=== PATIENT | female | born 1960 | race Caucasian/White ===

== ENCOUNTER 2022-12-13 10:21 | Emergency (ER) | payer BC ==
[2022-12-13 10:28] VITALS: RESP 18
--- NOTE | 2022-12-13 10:57 | ED ---
Extremity Problem HPI - General Chief complaint: Extremity Problem,Nontraumatic Stated complaint: post op knee pain Time Seen by Provider: 12/13/22 10:42 Source: patient, RN notes reviewed, old records reviewed Mode of arrival: ambulatory Limitations: no limitations - History of Present Illness Initial comments: This is a nontoxic-appearing 62-year-old female that presents to the emergency room with complaints of left knee pain that started yesterday after physical therapy. Patient states that she did have a surgery after a slip and fall on November 26 landing on her left hip and suffered a hip fracture. Surgery was performed at [facility] with Dr Mendieta. She did have anemia after surgery and was kept in the hospital. States her last hemoglobin was 10. States she did start physical therapy on with increased pain today. No swelling. No fevers. Patient states that she is taking [place] and eliquis however is concerned for a blood clot. States feels pulling in the back of her calf MD Complaint: extremity pain -: days(s) (3) Location: left, lower extremity, knee Severity scale (1-10): 10 Consistency: constant Improves with: immobilization, elevation Worsens with: palpation Associated Symptoms: denies other symptoms - Related Data Allergies Allergy/AdvReac Type Severity Reaction Status Date / Time No Known Allergies Allergy Verified 12/13/22 10:24 Review of Systems ROS Statement: Those systems with pertinent positive or pertinent negative responses have been documented in the HPI. ROS Other: All systems not noted in ROS Statement are negative. Past Medical History Past Medical History: No Reported History History of Any Multi-Drug Resistant Organisms: None Reported Past Surgical History: Orthopedic Surgery Past Psychological History: No Psychological Hx Reported Smoking Status: Never smoker Past Alcohol Use History: None Reported Past Drug Use History: None Reported General Exam Limitations: no limitations General appearance: alert, in no apparent distress Head exam: Present: atraumatic Eye exam: Present: normal appearance. Absent: scleral icterus, conjunctival injection, periorbital swelling Respiratory exam: Absent: respiratory distress, accessory muscle use Cardiovascular Exam: Present: regular rate GI/Abdominal exam: Present: soft Extremities exam: Present: normal capillary refill. Absent: pedal edema, joint swelling, calf tenderness Left Hip exam: Present: ecchymosis Upper Leg exam: Present: ecchymosis Knee exam: Present: tenderness, ecchymosis, full knee extension. Absent: swelling Lower Leg exam: Present: tenderness, ecchymosis. Absent: deformity, crepitus, dislocation, erythema, palpable cord, Homans' sign Ankle exam: Present: normal inspection. Absent: tenderness Neurovascular tendon exam: Present: no vascular compromise. Absent: abnormal cap refill, foot drop Neurological exam: Present: alert, oriented X3 Psychiatric exam: Present: normal affect, normal mood Skin exam: Present: warm, dry, normal color. Absent: cyanosis, diaphoretic, petechiae, pallor Course Vital Signs 12/13/22 12/13/22 10:24 12:31 Temperature 98.3 F 98.2 F Pulse Rate 90 64 Respiratory 18 Rate Blood Pressure 119/56 115/61 O2 Sat by Pulse 100 100 Oximetry Medical Decision Making - Medical Decision Making Pedal pulses are present. Foot is warm and dry. No evidence of foot drop. Sensation intact. Due to the patient's concern for complications post femur fracture or blood clot, a repeat x-ray and ultrasound to rule out DVT were performed. Patient is taking eliquis X-ray of the left knee shows no acute osseous abnormality X-ray of left hip shows status post medullary arthur in the left hip pinning. A left hip fracture evident on crosstable lateral view. Ultrasound left leg shows no evidence of DVT. Pain may be related to recent start of physical therapy post op. She was instructed to continue taking her Eliquis and follow-up with her orthopedic doctor next week. She is able to this plan of care. Case was discussed with Dr. Paul Was pt. sent in by a medical professional or institution (, PA, EMBROIDERER HAND, urgent care, hospital, or penitentiary...) When possible be specific @ -No Did you speak to anyone other than the patient for history (EMS, parent, family, police, friend...)? What history was obtained from this source @ -No Did you review nursing and triage notes (agree or disagree)? Why? @ -I reviewed and agree with nursing and triage notes Were old charts reviewed (outside hosp., previous admission, EMS record, old EKG, old radiological studies, urgent care reports/EKG's, penitentiary records)? Report findings @ -No old charts were reviewed Differential Diagnosis (chest pain, altered mental status, abdominal pain women, abdominal pain men, vaginal bleeding, weakness, fever, dyspnea, syncope, headache, dizziness, GI bleed, back pain, seizure, CVA, palpatations, mental health, musculoskeletal)? @ -DVT, cellulitis, abscess, internal derangement knee, fracture or malalignment of hardware, this is not an all inclusive list EKG interpreted by me (3pts min.). @ -n/a X-rays interpreted by me (1pt min.). @ -Yes as above CT interpreted by me (1pt min.). @ -None done U/S interpreted by me (1pt. min.). @ -no What testing was considered but not performed or refused? (CT, X-rays, U/S, labs)? Why? @ -None What meds were considered but not given or refused? Why? @ -Patient currently on eliquis Did you discuss the management of the patient with other professionals (professionals i.e. , PA, EMBROIDERER HAND, lab, RT, psych nurse, professor of social work, stone carriage operator, teacher, donor relations officer, employment case manager)? Give summary @ -No Was smoking cessation discussed for >3mins.? @ -No Was critical care preformed (if so, how long)? @ -No Were there social determinants of health that impacted care today? How? (Homelessness, low income, unemployed, alcoholism, drug addiction, transportation, low edu. Level, literacy, decrease access to med. care, nursing home, rehab)? @ -No Was there de-escalation of care discussed even if they declined (Discuss DNR or withdrawal of care, Hospice)? DNR status @ -No What co-morbidities impacted this encounter? (DM, HTN, Smoking, COPD, CAD, Cancer, CVA, ARF, Chemo, Hep., AIDS, mental health diagnosis, sleep apnea, morbid obesity)? @ -None Was patient admitted / discharged? Hospital course, mention meds given and route, prescriptions, significant lab abnormalities, going to OR and other pertinent info. @ -Discharged Undiagnosed new problem with uncertain prognosis? @ -No Drug Therapy requiring intensive monitoring for toxicity (Heparin, Nitro, Insu toñito, Cardizem)? @ -No Were any procedures done? @ -No Diagnosis/symptom? @ -Internal derangement left knee, left leg pain status post left femur fracture repair Acute, or Chronic, or Acute on Chronic? @ -Acute Uncomplicated (without systemic symptoms) or Complicated (systemic symptoms)? @ -Uncomplicated Side effects of treatment? @ -No Exacerbation, Progression, or Severe Exacerbation? @ -No Poses a threat to life or bodily function? How? (Chest pain, [place], OR, pneumonia, PE, COPD, DKA, ARF, appy, cholecystitis, CVA, Diverticulitis, Homicidal, Suicidal, threat to staff... and all critical care pts) @ -No Disposition Clinical Impression: Pain in left leg, Internal derangement of left knee Disposition: HOME SELF-CARE Condition: Good Instructions (If sedation given, give patient instructions): Leg Pain (ED) Additional Instructions: Continue taking your previously prescribed medications. Follow up with the orthopedic doctor on Thursday. Return to the emergency room with any new or concerning symptoms. Is patient prescribed a controlled substance at d/c from ED?: No Referrals: Nonstaff,Physician [Primary Care Provider] - 1-2 days Time of Disposition: 12:29
[2022-12-13] MEDS: MORPHINE SULFATE 4 MG/ML SYRINGE IM STA ×2 (11:02→11:37)
[2022-12-13] MEDS ORDERED: MORPHINE SULFATE 4 MG/ML SYRINGE IM STA (11:12)
--- NOTE | 2022-12-13 12:07 | XR ---
EXAMINATION TYPE: XR femur LT DATE OF EXAM: 12/13/2022 COMPARISON: None HISTORY: Pain post surgery TECHNIQUE: 2 view left femur FINDINGS: There is a left hip pinning with medullary arthur present. Cerclage wire is present. Postsurgi eric skin dayna are evident. Left hip fracture is evident on the crosstable lateral view. IMPRESSION: 1. Status post medullary arthur and left hip pain. Left hip fracture is evident on the crosstable later al view.
--- NOTE | 2022-12-13 12:08 | US ---
EXAMINATION TYPE: US venous doppler duplex LE LT DATE OF EXAM: 12/13/2022 10:56 AM COMPARISON: NONE CLINICAL HISTORY: s/p sx pain. No hx of DVT. Patient is on Xarelto. S/P SX pain. SIDE PERFORMED: Left TECHNIQUE: The lower extremity deep venous system is examined utilizing real time linear array sonog dahlia with graded compression, doppler sonography and color-flow sonography. VESSELS IMAGED: Common Femoral Vein Deep Femoral Vein Greater Saphenous Vein * Femoral Vein Popliteal Vein Small Saphenous Vein * Proximal Calf Veins (* superficial vessels) Left Leg: No evidence of DVT. IMPRESSION: 1. No ultrasound evidence of deep venous thrombosis left lower extremity.
--- NOTE | 2022-12-13 12:09 | XR ---
EXAMINATION TYPE: XR knee complete LT DATE OF EXAM: 12/13/2022 COMPARISON: Left femur HISTORY: Status post surgery, pain TECHNIQUE: Three-view left knee FINDINGS: Distal femoral medullary arthur is evident. Fixation screws are present. Surgical skin dayna are lateral There is mild narrowing of the knee joint space. No acute fractures are within the field of view. No significant joint effusion is evident. IMPRESSION: 1. No acute osseous abnormality left knee
[2022-12-13 12:46] VITALS: BP 115/61; PULSE 64; TEMP 98.2
== END 2022-12-13 12:46 | disposition home or self-care (01) ==
LOC: EC 10:21
DX: M23.92 Unspecified internal derangement of left knee (principal)
CPT/HCPCS: 99284

== ENCOUNTER → 2023-08-10 | Outpatient (CLI) | payer BC ==
--- NOTE | 2023-08-10 09:40 | MM ---
Reason for Exam: Screening (asymptomatic). Patient History: Menarche at age 12. Postmenopausal. Hormonal Contraceptives, from age 19 until age 39. Risk Values: Shannon 5 year model risk: 1.1%. NCI Lifetime model risk: 4.9%. Prior Study Comparison: No prior studies available for comparison. Tissue Density: The breast tissue is extremely dense which could obscure a lesion on mammography. Findings: Analyzed By CAD. There is no suspicious group of microcalcifications or new suspicious mass. Overall Assessment: Negative, BI-RAD 1 Management: Screening Mammogram of both breasts in [address] [facility] will attempt to contact patient to return for supplemental views and ultrasound if indicated. Patient should continue monthly self-breast exams. A clinical breast exam by your physician is recommended on an annual basis. This exam should not preclude additional follow-up of suspicious palpable abnormalities. Note on Shannon scores and lifetime risk: 1. A Shannon score greater than 3% is considered moderate risk. If this is the case, consider specialist referral to assess eligibility for a risk reducing agent. 2. If overall lifetime risk for the development of breast cancer is 20% or higher, the patient may qualify for future screening with alternating mammogram and breast MRI. Electronically signed and approved by: Levon Prather DO
--- NOTE | 2023-08-10 12:13 | BD ---
EXAMINATION TYPE: Axial Bone Density DATE OF EXAM: 08/10/2023 CLINICAL HISTORY: 62 years old Female. ICD-10 CODE: Z78.0 ASYMPTOMATIC MENOPAUSAL STA Height: 64 Weight: 120 FRAX RISK QUESTIONS: Family History (Parent hip fracture): yes History of Fracture in Adulthood: yes Secondary Osteoporosis: yes 3. Menopause before 45: yes 5. Chronic liver disease: acupuncture for slow liver RISK FACTORS HISTORY OF: Hip Fracture lt femoral/hip fx with surgical repair...12.13.2022 Surgery to lt hip/femur; 12.13.2022 Family History of Osteoporosis: yes, mother Postmenopausal woman: yes, at 40 yrs old Take estrogen and/or progesterone medications: in the past but nothing now Hyperparathyroidism: no Adrenal Insufficiency: no MEDICATIONS: Additional Medications: pain meds, iodine for her thyroid, xanax prn, statin for cholesterol, vit d a nd calcium, reflux otc meds, and acupuncture Additional History: hx of lt hip fx and repair, 2022, participates in acupuncture, and [place] herbal remedies, cholesterol meds, EXAM MEASUREMENTS: Bone mineral densitometry was performed using the [employer]. Bone mineral density as measured about the Lumbar spine is: ----- L1-L4(G/cm2): 0.842 T Score Values are as follows: ----- L1: -2.9 ----- L2: -3.4 ----- L3: -2.3 ----- L4: -2.9 ----- L1-L4: -2.8 Z Score Values are as follows: ----- L1: -1.1 ----- L2: -1.5 ----- L3: -0.4 ----- L4: -1.1 ----- L1-L4: -1.0 Bone mineral density is a baseline study. Bone mineral density about the R hip (g/cm2): 0.729 T Score values are as follows: -----R Neck: -2.3 -----R Total: -2.2 Z Score values are as follows: -----R Neck: -0.6 -----R Total: -0.8 Bone mineral density is a baseline study. FRAX%s: The graph provided illustrates a 17.3% chance for a major osteoporotic fx and a 3.3% chance f or the hips probability for fx in 10 years time. IMPRESSION: Osteoporosis (T Score less than -2.5). There is increased fracture risk and therapy is usually indicated based on age. Re-Screen 1-2 years. NOTE: T-SCORE=SD OF THE YOUNG ADULT MEAN.
== END | disposition home or self-care (01) ==
LOC: RADMAMWWP 08:14
PROVIDERS: ATTEND Family Medicine
DX: Z12.31 Encounter for screening mammogram for malignant neoplasm of breast (principal); M81.0 Age-related osteoporosis without current pathological fracture; M85.89 Other specified disorders of bone density and structure, multiple sites; Z78.0 Asymptomatic menopausal state
CPT/HCPCS: 77063; 77067; 77080